=== PATIENT | male | born 1990 | race Caucasian/White ===

== ENCOUNTER → 2019-11-05 09:51 | Outpatient (CLI) | payer OTHER, MEDICAID, SELFPAY ==
[2019-11-05 14:51] LABS: Urine N gonorrhoeae NOT DETECTED
[2019-11-05 15:00] LABS: Urine Chlamydia NOT DETECTED
[2019-11-05 18:48] LABS: HIV 1 & 2 Ab/Ag 4th Gen Combo NEGATIVE (NEGATIVE)
[2019-11-06 10:41] LABS: Hep C Virus Ab w/Reflex Quant NEGATIVE s/c (NEGATIVE)
[2019-11-07 14:04] LABS: HSV 1 IgM Screen Negative (Negative); HSV 2 IgM Screen Negative (Negative)
[2019-11-09 08:29] LABS: Syphilis AB Cascading Reflex NEGATIVE (Negative)
== END ==
PROVIDERS: PCP Family Medicine; Referring Provider Nurse Practitioner Family; Visit Provider Nurse Practitioner Family
DX: Z20.2 Contact with and (suspected) exposure to infections with a predominantly sexual mode of transmission (principal)
CPT/HCPCS: 36415; 86695; 86696; 86780; 86803; 87389; 87491; 87522; 87591